=== PATIENT | female | born 1995 | race Caucasian/White ===

== ENCOUNTER 2017-05-22 22:51 | Emergency (ER) | payer OTHER ==
[~2017-05-22] VITALS: Ht 160 cm; Wt 109.3 kg
[~2017-05-22 22:51] MED LIST: ALBU90OI6 INH; AMOX500 PO; AMOX50SU PO; BCP; BIRTH CONTROL; EMOQUETTE1 EACH; FLORIDE; HYDACE5 PO; MEDR150I IM; METPHE10 PO; Mirena1 EACH; NAPR500 PO; ONDA4; ONDA4 PO; ORTHO NOVUM PO; OXYACE5T PO; RXTRAM50 PO; SERT25 PO; TRAM50; TRAM50 PO; TRAZ100 PO; TRAZ50; VENL75ER PO; [UNRECOGNIZED DRUG - OTHER]; [UNRECOGNIZED DRUG - OTHER]; [UNRECOGNIZED DRUG - OTHER]; [UNRECOGNIZED DRUG - REMARK]
[2017-05-22] MEDS ORDERED: ALBU90OI61 INH (23:13)
[2018-03-20] MEDS ORDERED: Amoxicillin500 MG PO (19:01)
== END 2017-05-23 01:43 | disposition home or self-care (01) ==
LOC: ER 22:51
DX: R51 Headache (principal); Z88.8 Allergy status to other drugs, medicaments and biological substances; Z91.011 Allergy to milk products; Z79.899 Other long term (current) drug therapy; J45.909 Unspecified asthma, uncomplicated
CPT/HCPCS: 99282

== ENCOUNTER 2017-08-13 22:22 | Emergency (ER) | payer OTHER ==
[~2017-08-13] VITALS: Ht 160 cm; Wt 105.2 kg
[~2017-08-13 22:22] MED LIST changes: +ALBU90OI61 INH
[2017-08-13] MEDS ORDERED: GABA300 PO (22:32)
== END 2017-08-14 00:24 | disposition home or self-care (01) ==
LOC: ER 22:22
DX: M79.641 Pain in right hand (principal); Z91.012 Allergy to eggs; Z88.8 Allergy status to other drugs, medicaments and biological substances; Z88.5 Allergy status to narcotic agent; Z79.899 Other long term (current) drug therapy; J45.909 Unspecified asthma, uncomplicated
CPT/HCPCS: 73130; 99283

== ENCOUNTER → 2017-08-15 | Outpatient (CLI) | payer OTHER ==
[~2017-08-15] MED LIST changes: +GABA300 PO
[2017-08-16 09:30] LABS: Candida species (DNA Probe) Negative (NEGATIVE); G. vaginalis (DNA Probe) Negative (NEGATIVE); T. vaginalis (DNA Probe) Negative (NEGATIVE)
== END | disposition home or self-care (01) ==
LOC: LAB SHORT 12:21 → LAB 12:21
PROVIDERS: Obstetrics & Gynecology
DX: N89.8 Other specified noninflammatory disorders of vagina (principal)
CPT/HCPCS: 87480; 87510; 87660

== ENCOUNTER → 2017-10-24 | Outpatient (CLI) | payer OTHER ==
[2017-11-01 10:29] LABS: CHLAMYDIA BY NAA Negative (Negative); GONOCOCCUS BY NAA Negative (Negative); TRICH VAG BY NAA Negative (Negative)
== END | disposition home or self-care (01) ==
LOC: LAB 16:15 → LAB SHORT 16:15
PROVIDERS: Obstetrics & Gynecology
DX: Z01.419 Encounter for gynecological examination (general) (routine) without abnormal findings (principal); Z11.3 Encounter for screening for infections with a predominantly sexual mode of transmission
CPT/HCPCS: 87491; 87591; 87661; G0123

== ENCOUNTER 2018-04-24 15:48 | Emergency (ER) | payer OTHER ==
[~2018-04-24] VITALS: Ht 162.6 cm; Wt 104.3 kg
[~2018-04-24 15:48] MED LIST changes: +Amoxicillin500 MG PO
[2018-04-24] MEDS ORDERED: Verotin-Gr Cap1 EACH PO (17:31)
[2018-04-24 17:36] LABS: BASOPHILS ABSOLUTE AUTO 0.04 K/mm3 (0.00-0.23); BASOPHILS PERCENT AUTO 0 % (0-2); EOSINOPHILS ABSOLUTE AUTO 0.12 K/mm3 (0.00-0.68); EOSINOPHILS PERCENT AUTO 1 % (0-6); Hematocrit 43.4 % (33.0-51.0); Hemoglobin 14.3 g/dL (11.5-16.0); IMMATURE GRAN ABSOLUTE AUTO 0.03 K/mm3 (0.00-0.10); IMMATURE GRAN PERCENT AUTO 0 % (0-1); LYMPHOCYTES ABSOLUTE AUTO 2.49 K/mm3 (0.84-5.20); LYMPHOCYTES PERCENT AUTO 21 % (21-46); MONOCYTES ABSOLUTE AUTO 0.86 K/mm3 (0.16-1.47); MONOCYTES PERCENT AUTO 7 % (4-13); Mean Corpuscular HGB 30.6 pg (26.0-34.0); Mean Corpuscular HGB Conc 32.9 g/dL (31.5-36.5); Mean Corpuscular Volume 93 fL (80-100); Mean Platelet Volume 10.6 fL (9.1-12.4); NEUTROPHILS ABSOLUTE AUTO 8.34 K/mm3 (1.96-9.15); NEUTROPHILS PERCENT AUTO 70 % (41-73); Platelet Count 309 K/mm3 (150-400); RDW Coefficient Variation 13.7 % (11.7-14.2); RDW Standard Deviation 46.4 fL (35.1-46.3); Red Blood Cell Count 4.68 M/mm3 (3.80-5.20); White Blood Cell Count 11.88 K/mm3 (4.00-11.30)
[2018-04-24 18:02] LABS: Alanine Aminotransfer (ALT/SGP 24 U/L (12-78); Albumin, Blood 3.9 g/dL (3.4-5.0); Albumin/Globulin Ratio 0.9 (0.8-1.8); Alk Phos 92 U/L (50-136); Anion Gap 7 mmol/L (6-16); Aspartate Aminotrans (AST/SGOT 12 U/L (12-37); Bilirubin, Total 0.3 mg/dL (0.1-1.0); Blood Urea Nitrogen 9 mg/dL (8-24); Bun/Creatinine Ratio 11.7 (12.0-20.0); CO2, Blood 24 mmol/L (21-32); Calcium, Blood 8.8 mg/dL (8.5-10.1); Chloride, Blood 107 mmol/L (98-108); Creatinine, Blood 0.77 mg/dL (0.40-1.00); Globulin, Blood 4.2 g/dL (2.2-4.0); Glomerular Filtration Rate >60 (60-); Glucose, Blood 86 mg/dL (70-99); Potassium, Blood 3.9 mmol/L (3.5-5.5); Sodium, Blood 138 mmol/L (136-145); Total Protein, Blood 8.1 g/dL (6.4-8.2)
[2018-04-24 18:32] LABS: Beta HCG, Quantitative, Serum 12183 mIU/mL (0-3)
== END 2018-04-24 19:19 | disposition home or self-care (01) ==
LOC: ER 15:48
PROVIDERS: Physician Assistant
DX: O20.8 Other hemorrhage in early pregnancy (principal); Z91.012 Allergy to eggs; Z88.5 Allergy status to narcotic agent; Z88.8 Allergy status to other drugs, medicaments and biological substances; Z79.899 Other long term (current) drug therapy; O99.511 Diseases of the respiratory system complicating pregnancy, first trimester; J45.909 Unspecified asthma, uncomplicated; Z3A.01 Less than 8 weeks gestation of pregnancy
CPT/HCPCS: 36415; 76801; 80053; 84702; 85025; 86900; 86901; 96360; 99284-25; J7030

== ENCOUNTER → 2018-07-24 | Outpatient (CLI) | payer OTHER ==
[~2018-07-24] MED LIST changes: +Verotin-Gr Cap1 EACH PO
[2018-07-27 03:58] LABS: CHLAMYDIA TRACHOMATIS, NAA Negative (Negative); NEISSERIA GONORRHOEAE, NAA Negative (Negative)
== END | disposition home or self-care (01) ==
LOC: LAB SHORT 18:56 → LAB 18:56
PROVIDERS: Obstetrics & Gynecology
DX: Z11.3 Encounter for screening for infections with a predominantly sexual mode of transmission (principal)
CPT/HCPCS: 87491; 87591

== ENCOUNTER → 2018-11-25 | Outpatient (CLI) | payer OTHER ==
[~2018-11-25] MED LIST changes: +IBUP800 PO; +VENL150ER PO
[2018-11-26 11:55] LABS: Candida species (DNA Probe) Negative (NEGATIVE); G. vaginalis (DNA Probe) Negative (NEGATIVE); T. vaginalis (DNA Probe) Negative (NEGATIVE)
== END | disposition home or self-care (01) ==
LOC: LAB SHORT 16:13 → LAB 16:13
PROVIDERS: Advanced Practice Midwife
DX: O23.599 Infection of other part of genital tract in pregnancy, unspecified trimester (principal)
CPT/HCPCS: 87081; 87480; 87510; 87653; 87660

== ENCOUNTER 2018-12-15 12:05 | Inpatient (IN) | payer OTHER ==
[~2018-12-15] VITALS: Ht 162.6 cm; Wt 116.0 kg
[~2018-12-15 12:05] MED LIST changes: -IBUP800 PO; -VENL150ER PO
[2018-12-15] MEDS ORDERED: VENL150ER PO (13:10)
[2018-12-15 13:49] LABS: BASOPHILS ABSOLUTE AUTO 0.03 K/mm3 (0.00-0.23); BASOPHILS PERCENT AUTO 0 % (0-2); EOSINOPHILS ABSOLUTE AUTO 0.01 K/mm3 (0.00-0.68); EOSINOPHILS PERCENT AUTO 0 % (0-6); Hematocrit 37.9 % (33.0-51.0); Hemoglobin 12.4 g/dL (11.5-16.0); IMMATURE GRAN ABSOLUTE AUTO 0.05 K/mm3 (0.00-0.10); IMMATURE GRAN PERCENT AUTO 0 % (0-1); LYMPHOCYTES ABSOLUTE AUTO 0.75 K/mm3 (0.84-5.20); LYMPHOCYTES PERCENT AUTO 5 % (21-46); MONOCYTES ABSOLUTE AUTO 0.37 K/mm3 (0.16-1.47); MONOCYTES PERCENT AUTO 2 % (4-13); Mean Corpuscular HGB 30.1 pg (26.0-34.0); Mean Corpuscular HGB Conc 32.7 g/dL (31.5-36.5); Mean Corpuscular Volume 92 fL (80-100); Mean Platelet Volume 11.8 fL (9.1-12.4); NEUTROPHILS PERCENT AUTO 93 % (41-73); Platelet Count 235 K/mm3 (150-400); RDW Coefficient Variation 13.9 % (11.7-14.2); RDW Standard Deviation 46.3 fL (35.1-46.3); Red Blood Cell Count 4.12 M/mm3 (3.80-5.20); White Blood Cell Count 16.21 K/mm3 (4.00-11.30)
[2018-12-16 04:42] LABS: Hematocrit 36.9 % (33.0-51.0); Hemoglobin 12.2 g/dL (11.5-16.0); Mean Corpuscular HGB 30.7 pg (26.0-34.0); Mean Corpuscular HGB Conc 33.1 g/dL (31.5-36.5); Mean Corpuscular Volume 93 fL (80-100); Mean Platelet Volume 11.7 fL (9.1-12.4); Platelet Count 236 K/mm3 (150-400); RDW Coefficient Variation 14.1 % (11.7-14.2); RDW Standard Deviation 47.4 fL (35.1-46.3); Red Blood Cell Count 3.98 M/mm3 (3.80-5.20); White Blood Cell Count 21.21 K/mm3 (4.00-11.30)
--- NOTE | 2018-12-16 16:45 | NUR ---
CONSULT. BABY IS NEARING 24 HOURS AND STARTING TO WAKEN FOR FEEDINGS. INSTRUCT IN CHANGES TO EXPECT DURING THE FIRST WEEK WITH FEEDINGS AND WITH BABY AND REFERRED TO [facility] FOR PHOTOS AND INFORMATION. MOM IS MOTIVATED, WANTS TO BF, LOVING WITH BABY. QUESTIONS ANSWERED. INSTRUCT/DEMO POSITIONING TO HELP OBTAIN AN ASYMETRIC LATCH, FURTHER WIDEN THE LATCH, AND STIMULATING HIM TO KEEP ACTIVELY SUCKING. TOO SLEEPY TO LATCH WELL DURING VISIT. FAMILY MEMBERS PRESENT AND WILLING TO HELP AND MOM IS ACCEPTING OF HELP.
--- NOTE | 2018-12-17 09:20 | NUR ---
core referral made hholcomb rnc agree with assessment hholcomb rnc
[2018-12-17] MEDS ORDERED: IBUP800 PO (10:10)
--- NOTE | 2018-12-17 12:11 | NUR ---
DISCHARE INSTRUCTIONS REVIEWED WITH PATIENT. VERBALIZED UNDERSTANDING, DENIES ANY FURTHER QUESTIONS OR CONCERNS. BANDS MATCHED. MOM DISCHARGED HOME WITH BABY.
== END 2018-12-17 12:00 | disposition home or self-care (01) | DRG 807 ==
LOC: BC 12:05 → OBS 12:05 → BC 13:02
PROVIDERS: ADMIT Advanced Practice Midwife
PROC: 10E0XZZ Delivery of Products of Conception, External Approach (ICD-10-PCS; principal; 2018-12-15)
PROC: 0KQM0ZZ Repair Perineum Muscle, Open Approach (ICD-10-PCS; 2018-12-15)
PROC: 10907ZC Drainage of Amniotic Fluid, Therapeutic from Products of Conception, Via Natural or Artificial Opening (ICD-10-PCS; 2018-12-15)
DX: O32.6XX0 Maternal care for compound presentation, not applicable or unspecified (principal); Z37.0 Single live birth; O70.1 Second degree perineal laceration during delivery; Z3A.38 38 weeks gestation of pregnancy; O76 Abnormality in fetal heart rate and rhythm complicating labor and delivery; O99.344 Other mental disorders complicating childbirth; O99.62 Diseases of the digestive system complicating childbirth; O99.52 Diseases of the respiratory system complicating childbirth; O99.214 Obesity complicating childbirth; E66.9 Obesity, unspecified; K21.9 Gastro-esophageal reflux disease without esophagitis; F41.9 Anxiety disorder, unspecified; F32.9 Major depressive disorder, single episode, unspecified; F43.10 Post-traumatic stress disorder, unspecified; J45.909 Unspecified asthma, uncomplicated
CPT/HCPCS: 36415; 59025; 85025; 85027; A9270; J1885; J2405; J2590; J3010; J7120

== ENCOUNTER 2019-05-01 19:36 | Emergency (ER) | payer OTHER ==
[~2019-05-01] VITALS: Ht 160 cm; Wt 108.9 kg
[~2019-05-01 19:36] MED LIST changes: +IBUP800 PO; +VENL150ER PO
[2019-05-01 20:37] LABS: BASOPHILS ABSOLUTE AUTO 0.05 K/mm3 (0.00-0.23); BASOPHILS PERCENT AUTO 1 % (0-2); EOSINOPHILS ABSOLUTE AUTO 0.17 K/mm3 (0.00-0.68); EOSINOPHILS PERCENT AUTO 2 % (0-6); Hematocrit 44.3 % (33.0-51.0); Hemoglobin 14.5 g/dL (11.5-16.0); IMMATURE GRAN ABSOLUTE AUTO 0.03 K/mm3 (0.00-0.10); IMMATURE GRAN PERCENT AUTO 0 % (0-1); LYMPHOCYTES ABSOLUTE AUTO 3.15 K/mm3 (0.84-5.20); LYMPHOCYTES PERCENT AUTO 29 % (21-46); MONOCYTES ABSOLUTE AUTO 0.75 K/mm3 (0.16-1.47); MONOCYTES PERCENT AUTO 7 % (4-13); Mean Corpuscular HGB 29.4 pg (26.0-34.0); Mean Corpuscular HGB Conc 32.7 g/dL (31.5-36.5); Mean Corpuscular Volume 90 fL (80-100); Mean Platelet Volume 10.4 fL (9.1-12.4); NEUTROPHILS ABSOLUTE AUTO 6.67 K/mm3 (1.96-9.15); NEUTROPHILS PERCENT AUTO 62 % (41-73); Platelet Count 398 K/mm3 (150-400); RDW Coefficient Variation 14.6 % (11.7-14.2); RDW Standard Deviation 47.7 fL (35.1-46.3); Red Blood Cell Count 4.94 M/mm3 (3.80-5.20); White Blood Cell Count 10.82 K/mm3 (4.00-11.30)
[2019-05-01 20:55] LABS: Alanine Aminotransfer (ALT/SGP 48 U/L (12-78); Albumin, Blood 3.9 g/dL (3.4-5.0); Albumin/Globulin Ratio 0.9 (0.8-1.8); Alk Phos 131 U/L (50-136); Anion Gap 6 mmol/L (6-16); Aspartate Aminotrans (AST/SGOT 24 U/L (12-37); Bilirubin, Total 0.3 mg/dL (0.1-1.0); Blood Urea Nitrogen 9 mg/dL (8-24); Bun/Creatinine Ratio 12.4 (12.0-20.0); CO2, Blood 24 mmol/L (21-32); Calcium, Blood 8.8 mg/dL (8.5-10.1); Chloride, Blood 109 mmol/L (98-108); Creatinine, Blood 0.73 mg/dL (0.40-1.00); Globulin, Blood 4.4 g/dL (2.2-4.0); Glomerular Filtration Rate >60 (60-); Glucose, Blood 96 mg/dL (70-99); Potassium, Blood 3.9 mmol/L (3.5-5.5); Sodium, Blood 139 mmol/L (136-145); Total Protein, Blood 8.3 g/dL (6.4-8.2)
[2019-05-01] MEDS ORDERED: ARIP10 PO (21:54)
[2019-05-01] MEDS ORDERED: OMEPRAZOLE20 MG PO (21:54)
[2019-05-01] MEDS ORDERED: DULO60 PO (21:54)
[2019-05-01 22:15] LABS: Source, Urine Clean Catch
[2019-05-01 22:18] LABS: Bilirubin, Urine Neg (Neg); Blood, Urine 5+ (Neg); Glucose Qualitative, Urine Neg (Neg); Ketones, Urine Neg (Neg); Leukocyte Esterase, Urine Neg (Neg); Nitrite, Urine Neg (Neg); Protein, Urine 1+ (Neg); Specific Gravity, Urine 1.025 (1.003-1.022); Urobilinogen, Urine NORM (Normal)
[2019-05-01 22:45] LABS: Amorphous Heavy (0-Heavy); Appearance, Urine Turbid (Clear); Bacteria Few /hpf; Color, Urine Yellow (P-Yellow); Red Blood Cells, Urine 0-2 /hpf (0-2); Squamous Epithelial Cells Few /hpf (Few); White Blood Cells, Urine Not Seen /hpf (0-5)
[2019-05-01] MEDS ORDERED: MEDR10 PO (23:02)
== END 2019-05-01 23:08 | disposition home or self-care (01) ==
LOC: ER 19:36
PROVIDERS: Emergency Medicine; Physician Assistant
DX: T83.9XXA Unspecified complication of genitourinary prosthetic device, implant and graft, initial encounter (principal); N93.8 Other specified abnormal uterine and vaginal bleeding; J45.909 Unspecified asthma, uncomplicated; F32.9 Major depressive disorder, single episode, unspecified; F41.9 Anxiety disorder, unspecified; Z91.012 Allergy to eggs; Z88.5 Allergy status to narcotic agent; Z88.8 Allergy status to other drugs, medicaments and biological substances
CPT/HCPCS: 36415; 80053; 81001; 84703; 85025; 96374; 99284-25; J1885

== ENCOUNTER → 2020-03-05 | Outpatient (CLI) | payer OTHER ==
[~2020-03-05] MED LIST changes: +ARIP10 PO; +DULO60 PO; +MEDR10 PO; +OMEPRAZOLE20 MG PO
== END | disposition home or self-care (01) ==
LOC: PLD 10:57 → LAB SHORT 10:57
DX: R05 Cough (principal); Z20.828 Contact with and (suspected) exposure to other viral communicable diseases
CPT/HCPCS: U0003

== ENCOUNTER → 2021-06-15 | Outpatient (CLI) | payer OTHER ==
[2021-06-22 10:08] LABS: HPV APTIMA Negative (Negative)
== END | disposition home or self-care (01) ==
LOC: LAB 16:18 → LAB SHORT 16:18
PROVIDERS: Obstetrics & Gynecology
DX: Z01.411 Encounter for gynecological examination (general) (routine) with abnormal findings (principal)
CPT/HCPCS: G0123

== ENCOUNTER 2022-02-12 05:58 | Day surgery (SDC) | payer OTHER ==
[~2022-02-12] VITALS: Ht 162.6 cm; Wt 137.4 kg
[~2022-02-12 05:58] MED LIST changes: +GABA400 PO
--- NOTE | 2022-02-12 07:04 | NUR ---
History, Chart, Medications and Allergies reviewed before start of procedure. Lungs clear T/O to Auscultation. Patient confirms NPO status and agrees with scheduled surgery. Pre-Op teaching done. Pt verbalizes understanding. Patient States Post-Procedure ride home has been arranged. Patient reports completing Chlorhexadine shower X2 prior to admission to hospital.
--- NOTE | 2022-02-12 08:27 | NUR ---
02/12/22 0827 Marycarmen Machado NO PREOP ANTIBIOTICS ORDERED PER .
--- NOTE | 2022-02-12 11:40 | NUR ---
Discharge instructions reviewed with patient. Patient verbalizes understanding. Copy given to patient to take home. PATIENT REPORTS ABLE TO URINATE AFTER UP TO BATHROOM. Patient up to Ambulate independently. Gait steady. Discharged via wheelchair to private car for ride home WITH MOM
== END 2022-02-12 22:45 | disposition home or self-care (01) ==
LOC: ORSCMMR 05:58 → ORD 07:30 → ORSCMMR 22:45
PROVIDERS: Obstetrics & Gynecology
PROC: 0UJD4ZZ Inspection of Uterus and Cervix, Percutaneous Endoscopic Approach (ICD-10-PCS; principal; 2022-02-12 07:30)
DX: N80.9 Endometriosis, unspecified (principal); F32.A Depression, unspecified; F43.10 Post-traumatic stress disorder, unspecified; F90.9 Attention-deficit hyperactivity disorder, unspecified type; J45.909 Unspecified asthma, uncomplicated; E66.9 Obesity, unspecified; Z68.43 Body mass index [BMI] 50.0-59.9, adult; Z79.899 Other long term (current) drug therapy
CPT/HCPCS: 86850; 86900; 86901; A9270; J1100; J1885; J2250; J2405; J2704; J2765; J2795; J3010; J7120

== ENCOUNTER 2022-10-26 18:47 | Emergency (ER) | payer OTHER ==
[~2022-10-26] VITALS: Ht 165.1 cm; Wt 132.0 kg
[2022-10-26 19:17] VITALS: BP 130/79
[2022-10-26 19:49] LABS: BASOPHILS ABSOLUTE AUTO 0.03 K/mm3 (0.00-0.23); BASOPHILS PERCENT AUTO 0 % (0-2); EOSINOPHILS ABSOLUTE AUTO 0.11 K/mm3 (0.00-0.68); EOSINOPHILS PERCENT AUTO 1 % (0-6); Hematocrit 41.9 % (33.0-51.0); Hemoglobin 14.5 g/dL (11.5-16.0); IMMATURE GRAN ABSOLUTE AUTO 0.03 K/mm3 (0.00-0.10); IMMATURE GRAN PERCENT AUTO 0 % (0-1); LYMPHOCYTES ABSOLUTE AUTO 3.16 K/mm3 (0.84-5.20); LYMPHOCYTES PERCENT AUTO 28 % (21-46); MONOCYTES ABSOLUTE AUTO 0.71 K/mm3 (0.16-1.47); MONOCYTES PERCENT AUTO 6 % (4-13); Mean Corpuscular HGB 31.9 pg (26.0-34.0); Mean Corpuscular HGB Conc 34.6 g/dL (31.5-36.5); Mean Corpuscular Volume 92 fL (80-100); NEUTROPHILS ABSOLUTE AUTO 7.15 K/mm3 (1.96-9.15); NEUTROPHILS PERCENT AUTO 64 % (41-73); Platelet Count 272 K/mm3 (150-400); RDW Coefficient Variation 13.4 % (11.7-14.2); RDW Standard Deviation 45.5 fL (35.1-46.3); Red Blood Cell Count 4.55 M/mm3 (3.80-5.20); White Blood Cell Count 11.19 K/mm3 (4.00-11.30)
[2022-10-26 19:59] LABS: Albumin/Globulin Ratio 1.1 (0.8-1.8); Bilirubin, Total 0.3 mg/dL (0.1-1.0); Bun/Creatinine Ratio 17.4 (12.0-20.0); Calcium, Blood 9.1 mg/dL (8.5-10.1); Creatinine, Blood 0.63 mg/dL (0.40-1.00); Globulin, Blood 3.5 g/dL (2.2-4.0); Potassium, Blood 4.2 mmol/L (3.5-5.5); Total Protein, Blood 7.5 g/dL (6.4-8.2)
== END 2022-10-26 22:49 | disposition home or self-care (01) ==
LOC: ER 18:47
PROVIDERS: Emergency Medicine
DX: O20.0 Threatened abortion (principal); O99.511 Diseases of the respiratory system complicating pregnancy, first trimester; J45.909 Unspecified asthma, uncomplicated; Z3A.01 Less than 8 weeks gestation of pregnancy; Z88.8 Allergy status to other drugs, medicaments and biological substances; Z91.012 Allergy to eggs
CPT/HCPCS: 76801; 76817; 80053; 84703; 85025; 86900; 86901; 99284-25

== ENCOUNTER 2022-12-08 20:02 | Emergency (ER) | payer OTHER ==
[~2022-12-08] VITALS: Ht 162.6 cm; Wt 122.5 kg
[2022-12-08 21:12] LABS: Albumin, Blood 3.4 g/dL (3.4-5.0); Albumin/Globulin Ratio 0.8 (0.8-1.8); Bilirubin, Total 0.2 mg/dL (0.1-1.0); Bun/Creatinine Ratio 9.3 (12.0-20.0); Calcium, Blood 9.3 mg/dL (8.5-10.1); Creatinine, Blood 0.54 mg/dL (0.40-1.00); Globulin, Blood 4.1 g/dL (2.2-4.0); Potassium, Blood 3.8 mmol/L (3.5-5.5); Total Protein, Blood 7.5 g/dL (6.4-8.2)
[2022-12-08 22:46] LABS: BASOPHILS ABSOLUTE AUTO 0.02 K/mm3 (0.00-0.23); BASOPHILS PERCENT AUTO 0 % (0-2); EOSINOPHILS ABSOLUTE AUTO 0.06 K/mm3 (0.00-0.68); EOSINOPHILS PERCENT AUTO 1 % (0-6); Hematocrit 40.6 % (33.0-51.0); Hemoglobin 14.1 g/dL (11.5-16.0); IMMATURE GRAN ABSOLUTE AUTO 0.02 K/mm3 (0.00-0.10); IMMATURE GRAN PERCENT AUTO 0 % (0-1); LYMPHOCYTES ABSOLUTE AUTO 2.25 K/mm3 (0.84-5.20); LYMPHOCYTES PERCENT AUTO 21 % (21-46); MONOCYTES ABSOLUTE AUTO 0.77 K/mm3 (0.16-1.47); MONOCYTES PERCENT AUTO 7 % (4-13); Mean Corpuscular HGB 31.7 pg (26.0-34.0); Mean Corpuscular HGB Conc 34.7 g/dL (31.5-36.5); Mean Corpuscular Volume 91 fL (80-100); Mean Platelet Volume 11.2 fL (9.1-12.4); NEUTROPHILS ABSOLUTE AUTO 7.88 K/mm3 (1.96-9.15); NEUTROPHILS PERCENT AUTO 72 % (41-73); Platelet Count 239 K/mm3 (150-400); RDW Coefficient Variation 13.2 % (11.7-14.2); RDW Standard Deviation 44.2 fL (35.1-46.3); Red Blood Cell Count 4.45 M/mm3 (3.80-5.20)
[2022-12-08 23:00] VITALS: BP 127/73
== END 2022-12-08 23:08 | disposition home or self-care (01) ==
LOC: ER 20:02
PROVIDERS: Emergency Medicine
DX: O26.851 Spotting complicating pregnancy, first trimester (principal); O99.511 Diseases of the respiratory system complicating pregnancy, first trimester; J45.909 Unspecified asthma, uncomplicated; Z3A.13 13 weeks gestation of pregnancy; Z88.5 Allergy status to narcotic agent; Z88.8 Allergy status to other drugs, medicaments and biological substances; Z91.012 Allergy to eggs; Z79.899 Other long term (current) drug therapy
CPT/HCPCS: 76801; 80053; 84702; 85025; 86900; 86901; 99284-25

== ENCOUNTER 2022-12-28 22:48 | Emergency (ER) | payer OTHER ==
[~2022-12-28] VITALS: Ht 162.6 cm; Wt 124.2 kg
[2022-12-28 23:15] LABS: Source, Urine Clean Catch
[2022-12-28 23:19] LABS: Bilirubin, Urine Neg (Neg); Blood, Urine 2+ (Neg); Glucose Qualitative, Urine Neg (Neg); Ketones, Urine 3+ (Neg); Leukocyte Esterase, Urine 1+ (Neg); Nitrite, Urine Neg (Neg); Protein, Urine 1+ (Neg); Urobilinogen, Urine NORM (Normal)
[2022-12-28 23:25] LABS: Appearance, Urine Hazy (Clear); Color, Urine Yellow (P-Yellow)
[2022-12-28 23:27] LABS: Amorphous Light (0-Heavy); Bacteria Many /hpf; Calcium Oxalate Crystals Mod /hpf; Mucus Light (0-Heavy); Red Blood Cells, Urine 0-2 /hpf (0-2); Squamous Epithelial Cells Few /hpf (Few)
[2022-12-28 23:31] LABS: BASOPHILS ABSOLUTE AUTO 0.02 K/mm3 (0.00-0.23); BASOPHILS PERCENT AUTO 0 % (0-2); EOSINOPHILS ABSOLUTE AUTO 0.09 K/mm3 (0.00-0.68); EOSINOPHILS PERCENT AUTO 1 % (0-6); Hematocrit 38.9 % (33.0-51.0); Hemoglobin 13.5 g/dL (11.5-16.0); IMMATURE GRAN ABSOLUTE AUTO 0.02 K/mm3 (0.00-0.10); IMMATURE GRAN PERCENT AUTO 0 % (0-1); LYMPHOCYTES ABSOLUTE AUTO 3.61 K/mm3 (0.84-5.20); LYMPHOCYTES PERCENT AUTO 32 % (21-46); MONOCYTES ABSOLUTE AUTO 0.69 K/mm3 (0.16-1.47); MONOCYTES PERCENT AUTO 6 % (4-13); Mean Corpuscular HGB 31.9 pg (26.0-34.0); Mean Corpuscular HGB Conc 34.7 g/dL (31.5-36.5); Mean Corpuscular Volume 92 fL (80-100); Mean Platelet Volume 11.4 fL (9.1-12.4); NEUTROPHILS ABSOLUTE AUTO 6.76 K/mm3 (1.96-9.15); NEUTROPHILS PERCENT AUTO 60 % (41-73); Platelet Count 243 K/mm3 (150-400); RDW Coefficient Variation 13.4 % (11.7-14.2); RDW Standard Deviation 44.7 fL (35.1-46.3); Red Blood Cell Count 4.23 M/mm3 (3.80-5.20); White Blood Cell Count 11.19 K/mm3 (4.00-11.30)
[2022-12-28] MEDS ORDERED: PRENATAL TABLE1 EAC2 PO (23:58)
[2022-12-28] MEDS ORDERED: METO5A PO (23:58)
[2022-12-29 00:22] LABS: Albumin, Blood 3.2 g/dL (3.4-5.0); Albumin/Globulin Ratio 0.8 (0.8-1.8); Bilirubin, Total 0.3 mg/dL (0.1-1.0); Bun/Creatinine Ratio 12.5 (12.0-20.0); Calcium, Blood 9.2 mg/dL (8.5-10.1); Creatinine, Blood 0.56 mg/dL (0.40-1.00); Globulin, Blood 3.8 g/dL (2.2-4.0); Potassium, Blood 3.8 mmol/L (3.5-5.5)
[2022-12-29 00:50] VITALS: BP 104/82
== END 2022-12-29 00:51 | disposition home or self-care (01) ==
LOC: ER 22:48
PROVIDERS: Emergency Medicine
DX: O20.9 Hemorrhage in early pregnancy, unspecified (principal); O99.512 Diseases of the respiratory system complicating pregnancy, second trimester; J45.909 Unspecified asthma, uncomplicated; Z88.8 Allergy status to other drugs, medicaments and biological substances; Z88.5 Allergy status to narcotic agent; Z91.012 Allergy to eggs; Z79.899 Other long term (current) drug therapy; Z3A.16 16 weeks gestation of pregnancy
CPT/HCPCS: 76815; 76817; 80053; 81001; 84702; 85025; 86900; 86901; 87086; 99284-25

== ENCOUNTER → 2023-04-11 | Outpatient (CLI) | payer OTHER ==
[~2023-04-11] MED LIST changes: +METO5A PO; +PRENATAL TABLE1 EAC2 PO
[2023-04-12 11:17] LABS: Candida species (DNA Probe) Positive (NEGATIVE); G. vaginalis (DNA Probe) Negative (NEGATIVE); T. vaginalis (DNA Probe) Negative (NEGATIVE)
== END ==
LOC: LAB SHORT 13:49 → LAB 13:49
PROVIDERS: Obstetrics & Gynecology
DX: N76.0 Acute vaginitis (principal)
CPT/HCPCS: 87480; 87510; 87660

== ENCOUNTER → 2023-05-13 | Outpatient (CLI) | payer OTHER ==
[2023-05-13 15:08] LABS: Source, Urine Clean Catch
[2023-05-13 18:32] LABS: Appearance, Urine Turbid (Clear); Bilirubin, Urine Neg (Neg); Blood, Urine 4+ (Neg); Color, Urine Yellow (P-Yellow); Glucose Qualitative, Urine Neg (Neg); Ketones, Urine 1+ (Neg); Leukocyte Esterase, Urine 3+ (Neg); Nitrite, Urine Neg (Neg); Protein, Urine 2+ (Neg); Specific Gravity, Urine 1.025 (1.003-1.022); Urobilinogen, Urine NORM (Normal)
[2023-05-13 18:45] LABS: Amorphous Heavy (0-Heavy); Bacteria Mod /hpf; Calcium Oxalate Crystals Few /hpf; Squamous Epithelial Cells Few /hpf (Few)
== END | disposition home or self-care (01) ==
LOC: LAB SHORT 15:06 → LAB 15:06
PROVIDERS: Obstetrics & Gynecology
DX: R31.9 Hematuria, unspecified (principal)
CPT/HCPCS: 81001; 87086

== ENCOUNTER → 2023-05-20 | Outpatient (CLI) | payer OTHER ==
[2023-05-20 15:35] LABS: Source, Urine Clean Catch
[2023-05-20 16:43] LABS: Appearance, Urine Cloudy (Clear); Bilirubin, Urine Neg (Neg); Blood, Urine 3+ (Neg); Color, Urine Yellow (P-Yellow); Glucose Qualitative, Urine Neg (Neg); Ketones, Urine Neg (Neg); Leukocyte Esterase, Urine 3+ (Neg); Nitrite, Urine Neg (Neg); Protein, Urine 2+ (Neg); Urobilinogen, Urine NORM (Normal)
[2023-05-20 16:54] LABS: Calcium Oxalate Crystals Mod /hpf
[2023-05-20 16:55] LABS: Bacteria Many /hpf; Red Blood Cells, Urine 0-2 /hpf (0-2); Squamous Epithelial Cells Mod /hpf (Few)
== END ==
LOC: LAB SHORT 15:31 → LAB 15:31
PROVIDERS: Obstetrics & Gynecology
DX: O99.211 Obesity complicating pregnancy, first trimester (principal); O09.891 Supervision of other high risk pregnancies, first trimester; Z3A.00 Weeks of gestation of pregnancy not specified
CPT/HCPCS: 81001; 87081; 87086; 87150

== ENCOUNTER 2023-06-02 14:36 | Inpatient (IN) | payer OTHER ==
[~2023-06-02] VITALS: Ht 162.6 cm; Wt 122.4 kg
[2023-06-02] VITALS (11 sets, daily range): BP systolic 92–119; BP diastolic 50–68
[2023-06-02] MEDS ORDERED: Oxytocin 10 Unit / ML Vial IM SCH (14:50)
[2023-06-02] MEDS ORDERED: Misoprostol 200 MCG Tab PR SCH (14:50)
[2023-06-02] MEDS ORDERED: Lidocaine HCl 1% 30 ML SDV XX SCH (14:50)
[2023-06-02] MEDS ORDERED: Castor Oil 59.146 ML BTL TOP SCH (14:50)
[2023-06-02] MEDS ORDERED: Ampicillin Sod 2,000 MG in NS 100 ML IV STA (14:50)
[2023-06-02] MEDS ORDERED: Bupivacaine HCl 2.5 MG/ML 10ML P/F Injection XX SCH (14:50)
[2023-06-02] MEDS ORDERED: Lactated Ringer's 1,000 ML IV PRN (14:50)
[2023-06-02] MEDS ORDERED: Methylergonovine Maleate 0.2MG / ML 1ML Amp IM SCH (14:50)
[2023-06-02] MEDS ORDERED: LR Oxytocin 20 Units 1,000 ML IV SCH ×2 (14:50→20:20)
[2023-06-02] MEDS ORDERED: Bupivacaine 0.5% HCl 5 MG/ML 30MLVIAL XX SCH (14:50)
[2023-06-02 15:21] LABS: BASOPHILS ABSOLUTE AUTO 0.04 K/mm3 (0.00-0.23); BASOPHILS PERCENT AUTO 0 % (0-2); EOSINOPHILS PERCENT AUTO 1 % (0-6); Hematocrit 38.1 % (33.0-51.0); Hemoglobin 12.8 g/dL (11.5-16.0); IMMATURE GRAN ABSOLUTE AUTO 0.05 K/mm3 (0.00-0.10); IMMATURE GRAN PERCENT AUTO 0 % (0-1); LYMPHOCYTES ABSOLUTE AUTO 2.32 K/mm3 (0.84-5.20); LYMPHOCYTES PERCENT AUTO 20 % (21-46); MONOCYTES ABSOLUTE AUTO 0.85 K/mm3 (0.16-1.47); MONOCYTES PERCENT AUTO 7 % (4-13); Mean Corpuscular HGB 31.1 pg (26.0-34.0); Mean Corpuscular HGB Conc 33.6 g/dL (31.5-36.5); Mean Corpuscular Volume 93 fL (80-100); Mean Platelet Volume 11.6 fL (9.1-12.4); NEUTROPHILS ABSOLUTE AUTO 8.18 K/mm3 (1.96-9.15); NEUTROPHILS PERCENT AUTO 71 % (41-73); Platelet Count 262 K/mm3 (150-400); RDW Coefficient Variation 13.8 % (11.7-14.2); RDW Standard Deviation 46.6 fL (35.1-46.3); Red Blood Cell Count 4.12 M/mm3 (3.80-5.20); White Blood Cell Count 11.54 K/mm3 (4.00-11.30)
[2023-06-02] MEDS ORDERED: FentaNYL Citrate 50 MCG/ML 2 ML Injection IV PRN ×2 (15:40→15:45)
[2023-06-02] MEDS ORDERED: Calcium Carbonate 500 MG Tab Chew PO PRN (15:45)
[2023-06-02] MEDS ORDERED: FentaNYL Citrate 50 MCG/ML 2 ML Injection ONE (15:46)
[2023-06-02] MEDS ORDERED: Ondansetron HCl 2 MG / ML 2ML Vial IV PRN (15:50)
[2023-06-02] MEDS ORDERED: Ampicillin Sod 1,000 MG in NS 50 ML IV SCH (19:30)
[2023-06-02] MEDS ORDERED: Lactated Ringer's 1,000 ML IV SCH (20:20)
[2023-06-02] MEDS ORDERED: Methylergonovine Maleate 0.2MG / ML 1ML Amp IM PRN (20:20)
[2023-06-02] MEDS ORDERED: Acetaminophen 325 MG TABLET PO PRN (20:20)
[2023-06-02] MEDS ORDERED: Docusate Sodium 100 MG Cap PO PRN (20:25)
[2023-06-02] MEDS ORDERED: Witch Hazel/Glycerin PADS TOP PRN (20:25)
[2023-06-02] MEDS ORDERED: Benzocaine Topical Anesthetic Spray 60GM TOP PRN (20:25)
[2023-06-02] MEDS ORDERED: FLU VACC QS2023-24(6MOS UP)/PF 60 MCG/0.5 ML SYRINGE IM ONE (20:25)
[2023-06-02] MEDS ORDERED: Misoprostol 200 MCG Tab PR PRN (20:25)
[2023-06-02] MEDS ORDERED: Ibuprofen 400 MG Tab PO PRN (20:25)
[2023-06-02] MEDS ORDERED: Ketorolac Tromethamine 30mg Vial IV ONE (21:00)
[2023-06-02] MEDS ORDERED: Ketorolac Tromethamine 30mg Vial IV PRN (21:00)
[2023-06-03] MEDS ORDERED: Acetaminophen 325 MG TABLET PO PRN (01:20)
[2023-06-03 01:22] VITALS: BP 112/58
[2023-06-03 04:20] VITALS: BP 100/63
[2023-06-03 05:51] LABS: Free Thyroxine 0.84 ng/dL (0.70-1.60); Thyroid Stimulating Hormone 0.583 uIU/mL (0.360-4.800); Triiodothyronine, Free 2.15 pg/mL (2.18-3.98)
[2023-06-03 08:09] VITALS: BP 109/57
[2023-06-03] MEDS ORDERED: Prenatal Vit/FE Fumarate/FA 1 Tab PO SCH (09:00)
[2023-06-03 11:52] VITALS: BP 106/57
[2023-06-03 16:33] VITALS: BP 103/52
[2023-06-03 19:39] VITALS: BP 103/55
== END 2023-06-03 20:25 | disposition home or self-care (01) | DRG 807 ==
LOC: OBS 14:36 → BC 14:37 → OBS 14:44 → BC 14:44
PROVIDERS: Advanced Practice Midwife; ADMIT Obstetrics & Gynecology
PROC: 10E0XZZ Delivery of Products of Conception, External Approach (ICD-10-PCS; principal; 2023-06-02)
PROC: 4A1HXCZ Monitoring of Products of Conception, Cardiac Rate, External Approach (ICD-10-PCS; 2023-06-02)
PROC: 10H073Z Insertion of Monitoring Electrode into Products of Conception, Via Natural or Artificial Opening (ICD-10-PCS; 2023-06-02)
PROC: 4A1H7CZ Monitoring of Products of Conception, Cardiac Rate, Via Natural or Artificial Opening (ICD-10-PCS; 2023-06-02)
PROC: 10H07YZ Insertion of Other Device into Products of Conception, Via Natural or Artificial Opening (ICD-10-PCS; 2023-06-02)
DX: O42.02 Full-term premature rupture of membranes, onset of labor within 24 hours of rupture (principal); Z37.0 Single live birth; O99.284 Endocrine, nutritional and metabolic diseases complicating childbirth; E05.90 Thyrotoxicosis, unspecified without thyrotoxic crisis or storm; O99.214 Obesity complicating childbirth; E66.01 Morbid (severe) obesity due to excess calories; O69.81X0 Labor and delivery complicated by cord around neck, without compression, not applicable or unspecified; O99.824 Streptococcus B carrier state complicating childbirth; O67.9 Intrapartum hemorrhage, unspecified; O70.0 First degree perineal laceration during delivery; Z88.5 Allergy status to narcotic agent; Z88.8 Allergy status to other drugs, medicaments and biological substances; Z79.82 Long term (current) use of aspirin
CPT/HCPCS: 36415; 84439; 84443; 84481; 85025; 86850; 86900; 86901; A9270; J0290; J1885; J2405; J2590; J3010; J7120

== ENCOUNTER 2023-06-06 01:55 | Emergency (ER) | payer OTHER ==
[~2023-06-06] VITALS: Ht 162.6 cm; Wt 119.8 kg
[2023-06-06 02:06] VITALS: BP 128/82
[2023-06-06] MEDS ORDERED: DOCU100 PO (03:34)
== END 2023-06-06 03:43 | disposition home or self-care (01) ==
LOC: ER 01:55
DX: O99.893 Other specified diseases and conditions complicating puerperium (principal); N81.10 Cystocele, unspecified; Z91.012 Allergy to eggs; Z88.5 Allergy status to narcotic agent; Z88.1 Allergy status to other antibiotic agents
CPT/HCPCS: 99283

== ENCOUNTER → 2023-10-10 | Outpatient (CLI) | payer OTHER ==
[~2023-10-10] MED LIST changes: +DOCU100 PO
[2023-10-10 17:26] LABS: Source, Urine Voided
[2023-10-10 20:16] LABS: U Amphetamine Screen Not Detected; U Barbituate Screen Not Detected; U Benzodiazapine Screen Not Detected; U Buprenorphine Screen Not Detected; U Cannabinoids Screen Not Detected; U Cocaine Screen Not Detected; U Methadone Screen Not Detected; U Methamphetamine Screen Not Detected; U Opiates Screen Not Detected; U Oxycodone Screen Not Detected; U Phencyclidine Screen Not Detected
[2023-10-10 20:36] LABS: Amorphous Heavy (0-Heavy); Bacteria Few /hpf; Red Blood Cells, Urine 0-2 /hpf (0-2); Squamous Epithelial Cells Few /hpf (Few); White Blood Cells, Urine 0-2 /hpf (0-5)
== END | disposition home or self-care (01) ==
LOC: LAB 17:21 → LAB SHORT 17:21
PROVIDERS: Obstetrics & Gynecology
DX: Z34.81 Encounter for supervision of other normal pregnancy, first trimester (principal)
CPT/HCPCS: 81015; 87086

== ENCOUNTER 2023-11-11 10:56 | Day surgery (SDC) | payer OTHER ==
[~2023-11-11] VITALS: Ht 162.6 cm; Wt 120.7 kg
[~2023-11-11 10:56] MED LIST changes: +Lactated Ringer's 1,000 ML IV ONE
[2023-11-11] MEDS ORDERED: Methylergonovine Maleate 0.2MG / ML 1ML Amp ONE (11:34)
[2023-11-11] MEDS ORDERED: FentaNYL Citrate 50 MCG/ML 2 ML Injection ONE (11:39)
[2023-11-11] MEDS ORDERED: propofoL 40 ML IV ONE (11:39)
[2023-11-11] MEDS ORDERED: Lactated Ringer's 1,000 ML IV ONE (11:46)
[2023-11-11] MEDS ORDERED: Metoclopramide HCl 5MG / ML 2ML Vial ONE (11:59)
[2023-11-11] MEDS ORDERED: Dexamethasone Sod Phos 10 MG/ML 1ML VIAL ONE (11:59)
[2023-11-11] MEDS ORDERED: Ondansetron HCl 2 MG / ML 2ML Vial ONE ×2 (11:59→12:49)
[2023-11-11] MEDS ORDERED: Ketorolac Tromethamine 30mg Vial ONE (12:21)
[2023-11-11] MEDS ORDERED: Acetaminophen 500 MG Tab ONE (13:58)
[2023-11-11 14:21] VITALS: BP 114/56
--- NOTE | 2023-11-11 14:23 | NUR ---
11/11/23 1423 Dimple Carter PT STATED THAT NAUSEA HAS RESOLVED AFTER RECEIVING IV ZOFRAN. PT ABLE TO TOLERATE SNACKS, AND FLUIDS. SIGNIFICANT OTHER AT SIDE OF RECLINER. PT DID STATE THAT HER PAIN WAS A 4/10. 1330: PT ABLE TO URINATE WITHOUT ANY PROBLEMS. PT DENIED ANY DIZZINESS WITH TRANSFERS. 1400: PT WAS GIVEN 1,000MG OF APAP PER DOCTOR EMO'S ORDERS.
== END 2023-11-11 14:10 | disposition home or self-care (01) ==
LOC: ORSCSDS 10:56
PROVIDERS: Obstetrics & Gynecology
PROC: 10D17ZZ Extraction of Products of Conception, Retained, Via Natural or Artificial Opening (ICD-10-PCS; principal; 2023-11-11 12:15)
DX: O02.1 Missed abortion (principal); J45.909 Unspecified asthma, uncomplicated; E66.9 Obesity, unspecified; Z68.42 Body mass index [BMI] 45.0-49.9, adult
CPT/HCPCS: 76998; 88305; 88342; A9270; J1100; J1885; J2210; J2405; J2704; J2765; J3010; J7120

== ENCOUNTER → 2024-02-20 | Outpatient (CLI) | payer OTHER ==
[~2024-02-20] MED LIST changes: -Lactated Ringer's 1,000 ML IV ONE
[2024-02-21 07:28] LABS: Bacterial Vaginosis PCR Negative (NEGATIVE); Candida Group, PCR NOT DETECTED (NOT DETECT); Candida glabrata-krusei, PCR NOT DETECTED (NOT DETECT)
[2024-02-21 08:05] LABS: Chlamydia Trachomatis Vaginal NOT DETECTED (NOT DETECT); Neisseria Gonorrhoea Vaginal NOT DETECTED (NOT DETECT)
== END ==
LOC: LAB SHORT 17:05 → LAB 17:05
PROVIDERS: Registered Nurse Community Health
DX: N89.8 Other specified noninflammatory disorders of vagina (principal); N93.9 Abnormal uterine and vaginal bleeding, unspecified
CPT/HCPCS: 87481; 87491; 87591; 87661; 87801

== ENCOUNTER 2024-06-25 11:11 | Emergency (ER) | payer BC, OTHER ==
[~2024-06-25] VITALS: Ht 162.6 cm; Wt 113.4 kg
[2024-06-25] MEDS ORDERED: ESCITALOPRAM OXA5 MG PO (11:19)
[2024-06-25 12:32] LABS: BASOPHILS ABSOLUTE AUTO 0.04 K/mm3 (0.00-0.23); BASOPHILS PERCENT AUTO 1 % (0-2); EOSINOPHILS ABSOLUTE AUTO 0.19 K/mm3 (0.00-0.68); EOSINOPHILS PERCENT AUTO 3 % (0-6); Hematocrit 39.6 % (33.0-51.0); Hemoglobin 13.4 g/dL (11.5-16.0); IMMATURE GRAN ABSOLUTE AUTO 0.01 K/mm3 (0.00-0.10); IMMATURE GRAN PERCENT AUTO 0 % (0-1); LYMPHOCYTES ABSOLUTE AUTO 2.55 K/mm3 (0.84-5.20); LYMPHOCYTES PERCENT AUTO 37 % (21-46); MONOCYTES PERCENT AUTO 7 % (4-13); Mean Corpuscular HGB 30.6 pg (26.0-34.0); Mean Corpuscular HGB Conc 33.8 g/dL (31.5-36.5); Mean Corpuscular Volume 90 fL (80-100); Mean Platelet Volume 11.1 fL (9.1-12.4); NEUTROPHILS ABSOLUTE AUTO 3.56 K/mm3 (1.96-9.15); NEUTROPHILS PERCENT AUTO 52 % (41-73); Platelet Count 250 K/mm3 (150-400); RDW Coefficient Variation 13.7 % (11.7-14.2); RDW Standard Deviation 46.2 fL (35.1-46.3); Red Blood Cell Count 4.38 M/mm3 (3.80-5.20); White Blood Cell Count 6.85 K/mm3 (4.00-11.30)
[2024-06-25 12:46] LABS: Alanine Aminotransfer (ALT/SGP 34 U/L (12-78); Albumin, Blood 3.6 g/dL (3.4-5.0); Alk Phos 88 U/L (50-136); Anion Gap 9 mmol/L (3-11); Aspartate Aminotrans (AST/SGOT 24 U/L (12-37); Beta HCG, Quantitative, Serum <1 mIU/mL (0-3); Bilirubin, Total 0.3 mg/dL (0.1-1.0); Blood Urea Nitrogen 9 mg/dL (8-24); Bun/Creatinine Ratio 12.7 (12.0-20.0); CO2, Blood 24 mmol/L (21-32); Calcium, Blood 7.8 mg/dL (8.5-10.1); Chloride, Blood 111 mmol/L (98-108); Creatinine, Blood 0.71 mg/dL (0.40-1.00); Globulin, Blood 3.7 g/dL (2.2-4.0); Glomerular Filtration Rate 119 (60-); Glucose, Blood 105 mg/dL (70-99); Potassium, Blood 3.8 mmol/L (3.5-5.5); Sodium, Blood 140 mmol/L (136-145); Total Protein, Blood 7.3 g/dL (6.4-8.2)
[2024-06-25 13:18] LABS: Source, Urine Clean Catch
[2024-06-25 13:21] LABS: Appearance, Urine Clear (Clear); Bilirubin, Urine Neg (Neg); Blood, Urine 5+ (Neg); Color, Urine Yellow (P-Yellow); Glucose Qualitative, Urine Neg (Neg); Ketones, Urine Neg (Neg); Leukocyte Esterase, Urine Neg (Neg); Nitrite, Urine Neg (Neg); Protein, Urine 1+ (Neg); Specific Gravity, Urine 1.025 (1.003-1.022); Urobilinogen, Urine NORM (Normal)
[2024-06-25 13:27] LABS: Bacteria Few /hpf; Hyaline Casts 0-2 /lpf (0-2); Mucus Light (0-Heavy); Red Blood Cells, Urine 25-50 /hpf (0-2); Squamous Epithelial Cells Mod /hpf (Few); White Blood Cells, Urine 0-2 /hpf (0-5)
[2024-06-25] MEDS ORDERED: MEDR5 PO (14:13)
[2024-06-25 14:15] VITALS: BP 111/50
== END 2024-06-25 14:30 | disposition home or self-care (01) ==
LOC: ER 11:11
PROVIDERS: Student in an Organized Health Care Education/Training Program
DX: N92.6 Irregular menstruation, unspecified (principal); J45.909 Unspecified asthma, uncomplicated; Z91.012 Allergy to eggs; Z88.5 Allergy status to narcotic agent; Z88.8 Allergy status to other drugs, medicaments and biological substances; Z79.899 Other long term (current) drug therapy
CPT/HCPCS: 76830; 76856; 80053; 81001; 84702; 85025; 99284-25

== ENCOUNTER 2024-11-05 06:15 | Inpatient (IN) | payer BC, OTHER ==
[~2024-11-05] VITALS: Ht 162.6 cm; Wt 132.5 kg
[2024-11-05] VITALS (9 sets, daily range): BP systolic 112–153; BP diastolic 46–113
[~2024-11-05 06:15] MED LIST changes: +ESCITALOPRAM OXA5 MG PO; +MEDR5 PO
[2024-11-05] MEDS ORDERED: CeFAZolin Sodium 3,000 MG in NS 100 ML IV SCH (06:25)
[2024-11-05] MEDS ORDERED: IBUP600 PO (06:46)
[2024-11-05] MEDS ORDERED: MELO7.5 PO (06:47)
[2024-11-05] MEDS ORDERED: GABA100 PO (06:47)
[2024-11-05] MEDS ORDERED: SYMBICORT 80-46.9 GM INH (06:48)
[2024-11-05] MEDS ORDERED: Dexamethasone Sod Phos 10 MG/ML 1ML VIAL ONE (06:58)
[2024-11-05] MEDS ORDERED: FentaNYL Citrate 50 MCG/ML 2 ML Injection ONE ×3 (06:58→15:20)
[2024-11-05] MEDS ORDERED: Rocuronium Bromide 10 MG/ML 5ML Injection IV ONE ×3 (06:58→17:26)
[2024-11-05] MEDS ORDERED: Bupivacaine 0.5% W/EPI 1:200000 SDV 30 ML Vial ONE (06:58)
[2024-11-05] MEDS ORDERED: Ondansetron HCl 2 MG / ML 2ML Vial ONE (06:58)
--- NOTE | 2024-11-05 07:00 | NUR ---
Ambulatory in Day Surgery History, Chart, Medications and Allergies reviewed before start of procedure. Pre-Op teaching done. Pt verbalizes understanding.
[2024-11-05] MEDS ORDERED: Sugammadex Sodium 200 MG/2ML SDV (100 MG/ML) ONE (07:21)
[2024-11-05] MEDS ORDERED: Albuterol 2.5 MG/3 ML VIAL INH PRN (07:35)
[2024-11-05] MEDS ORDERED: HYDROmorphone HCl/Pf 1MG SYR IV PRN (07:35)
[2024-11-05] MEDS ORDERED: Labetalol HCL 5 MG/ML 4ML Injection (Single Dose) IV PRN (07:35)
[2024-11-05] MEDS ORDERED: Ondansetron HCl 2 MG / ML 2ML Vial IV PRN (07:35)
[2024-11-05] MEDS ORDERED: FentaNYL Citrate 50 MCG/ML 2 ML Injection IV PRN ×3 (07:35→14:15)
[2024-11-05] MEDS ORDERED: EPINEPHrine HCL 4 MG in NS 250 ML IV SCH (08:15)
[2024-11-05 09:19] LABS: Calcium, Ionized (POC) 1.02 mmol/L (1.10-1.46); Chloride (POC) 106 mmol/L (98-108); Creatinine (POC) 0.8 mg/dL (0.6-1.0); Glucose (ISTAT POC) 297 mg/dL (70-99); Hematocrit (POC) 43.0 % (36.0-46.0); Hemoglobin (POC) 14.6 g/dL (12.0-16.0); Potassium (POC) 2.8 mmol/L (3.5-5.5); Sodium (POC) 140 mmol/L (135-148); Total CO2 (POC) 18 mmol/L (21-32)
[2024-11-05 09:24] LABS: pH Blood Venous 7.02 (7.34-7.37)
[2024-11-05] MEDS ORDERED: EPINEPHrine HCL 16 MG in NS 250 ML IV SCH (09:40)
[2024-11-05] MEDS ORDERED: Vasopressin 20 UNITS in NS 100 ML IV SCH (09:45)
--- NOTE | 2024-11-05 09:45 | NUR ---
PT ARRIVES TO ICU 7 FROM OR INTUBATED AND EPI GTT AT 200MCG/MIN PER DR. DURBIN (ANESTHESIOLOGIST). HAS CENTRAL LINE TO RIJ. XRAY CONFIRMATION OF ETT AND CENTRAL LINE DONE IN OR. PT HAS DUSKY EXTREMITIES. PULSES FAINT PALPABLE IN BILAT FEET. OVERALL PALE AND DUSKY T/O. DIFFICULT TO GET SPO2 READING. A-LINE TO R WRIST THAT WAS PLACED IN OR IS NO LONGER PATENT. DR. LEWIS WILL BE PLACING A NEW ONE. HAS [place] CATH. PT IS UNRESPONSIVE AT THIS TIME, NO SEDATIVES GIVEN PER OR REPORT FOR A COUPLE HOURS.
[2024-11-05] MEDS ORDERED: NS 500 ML IV ONE (09:50)
[2024-11-05 10:27] LABS: BASOPHILS ABSOLUTE AUTO 0.05 K/mm3 (0.00-0.23); BASOPHILS PERCENT AUTO 0 % (0-2); EOSINOPHILS ABSOLUTE AUTO 0.09 K/mm3 (0.00-0.68); EOSINOPHILS PERCENT AUTO 1 % (0-6); Hematocrit 46.1 % (33.0-51.0); Hemoglobin 14.6 g/dL (11.5-16.0); IMMATURE GRAN ABSOLUTE AUTO 0.13 K/mm3 (0.00-0.10); IMMATURE GRAN PERCENT AUTO 1 % (0-1); LYMPHOCYTES ABSOLUTE AUTO 9.36 K/mm3 (0.84-5.20); LYMPHOCYTES PERCENT AUTO 54 % (21-46); MONOCYTES ABSOLUTE AUTO 0.27 K/mm3 (0.16-1.47); MONOCYTES PERCENT AUTO 2 % (4-13); Mean Corpuscular HGB Conc 31.7 g/dL (31.5-36.5); Mean Corpuscular Volume 96 fL (80-100); NEUTROPHILS ABSOLUTE AUTO 7.45 K/mm3 (1.96-9.15); NEUTROPHILS PERCENT AUTO 43 % (41-73); NRBC ABSOLUTE 0.00 K/mm3 (0.00-0.02); NRBC Auto 0.0 /100 WBC (0.0-0.2); Platelet Count 282 K/mm3 (150-400); RDW Coefficient Variation 13.5 % (11.7-14.2); RDW Standard Deviation 48.1 fL (35.1-46.3)
[2024-11-05 10:41] LABS: Anion Gap 14.0 mmol/L (3-11); Blood Urea Nitrogen 10.0 mg/dL (8-24); CO2, Blood 17.0 mmol/L (21-32); Calcium, Blood 6.3 mg/dL (8.5-10.1); Chloride, Blood 112.0 mmol/L (98-108); Creatinine, Blood 0.7 mg/dL (0.40-1.00); Glucose, Blood 302.0 mg/dL (70-99); Magnesium, Blood 1.9 mg/dL (1.6-2.4); Phosphorus, Blood 4.4 mg/dL (2.5-4.9); Potassium, Blood 2.8 mmol/L (3.5-5.5); Sodium, Blood 140.0 mmol/L (136-145)
[2024-11-05 10:42] LABS: Prothrombin Time Results 14.2 Sec (9.7-11.5)
--- NOTE | 2024-11-05 10:58 | NUR ---
Spiritual Care | Family Support | Nurse Request Pt. is in OR when this cotton picking machine operator is called at approx. 0915 to give support to the Pts. SO in the hallway. SO displays evidence of being very upset. Facilitated a short review and listen with empathy and a calming presence. SO verbalized concern that the hospital was responsible for the Pts. condition. Attempts to normalize the Pt. experience and provide further care were made, but SO requested that this cotton picking machine operator and the staff "give him space." Will remain available to Pt. and SO and staff as needed.
[2024-11-05 10:59] LABS: pH Blood Arterial 6.98 (7.35-7.45)
--- NOTE | 2024-11-05 11:00 | NUR ---
UPDATE PT STILL UNRESPONSIVE. STILL HAVING DIFFICULTY GETTING SPO2. DR. LEWIS PLACED A-LINE TO R AXILLARY AND CENTRAL LINE WAS WITHDRAWN 4 CM. OG TUBE PLACED, AUSCULATION VERIFIED AND BILE RETURN, CLAMPED.
[2024-11-05] MEDS ORDERED: Sodium Bicarb 8.4% 1 MEQ/ML 50 ML Vial IV ONE ×2 (11:05→16:11)
[2024-11-05] MEDS ORDERED: SODIUM BICARB IV ONE (11:05)
[2024-11-05] MEDS ORDERED: Calcium Chloride 10% 1,000 MG in NS 50 ML IV ONE (11:10)
--- NOTE | 2024-11-05 11:12 | NUR ---
11/05/24 DAREN KAY PATIENT INTO OR @ 0729 - PATIENT POSITIONED ON TABLE WITH PADS, STRAPS, MONITOR LEADS, SCDS, and associated tubing. Patient induced and intubated without issue, mri manager began prepping perineum and pelvis with CHG scrub and sponges at approximatley 0745. Shortly after, patient began exhibiting hypotension, hypoxia, and tachycardia. State Inspector moved to head of bed to assisst anesthesia with airway - ET tube replaced without improvment and additional anesthesia support requested at approximatley 0755. Assistance arrived at approximatley 0805, epinephrine drip started at approximatley 0825. RN notes presence of red, mottled, large rash had appeared on inner thighs, groin, and perineum at this point - poss. anaphylaxis to prep solution considered in H's & T's and epinephrine already being administered. ICU carousel attendant Dr. Porter arrived at approximatley 0849 and CVC placed by 0908. Near-code situation continued with continuous resuscitative measures being taken until chest XR taken at 0916 to confirm CVC and ET tube placement. 2 amps of sodium bicarb given per Dr. Porter, ICU carousel attendant, patient prepared to move to ICU. 09 Patient transfered to ICU 7 on transport monitor with Dr. Blancas, Dr Borges, Dr. Porter, and 4 RN's. See code sheet for further details.
[2024-11-05 12:05] LABS: pH Blood Arterial 7.06 (7.35-7.45)
[2024-11-05] MEDS ORDERED: Bumetanide 0.25 MG/ML 10ML Vial IV ONE (12:10)
[2024-11-05 14:07] LABS: pH Blood Arterial 7.07 (7.35-7.45)
[2024-11-05] MEDS ORDERED: Enoxaparin 40 MG/0.4 ML SYR SC SCH (15:00)
[2024-11-05 15:12] LABS: pH Blood Arterial 7.06 (7.35-7.45)
--- NOTE | 2024-11-05 15:45 | NUR ---
UPDATE PT WAS PRONED AT 1305 FOR OXYGENATION DIFFICULTY. FREQUENT ABG'S BEING DRAWN DUE TO POOR SPO2 READING. DR. LEWIS ADJUSTING THE VENT SETTINGS FREQUENTLY. LEVOPHED WAS ADDED AND WILL TRY TO COME DOWN ON EPI GTT IF POSSIBLE. CT OF HEAD WAS DONE EARLIER. PT IS NOW STARTING TO TRY TO OPEN EYE'S ON COMMAND, TWITCHING EXTREMITIES AND MOVING HEAD. ONE DOSE OF FENTANYL AND ROCURONIUM GIVEN FOR VENT COMPLIANCE PER DR. LEWIS. PUPILS EQUAL AND REACTIVE. DR. LEWIS IS CONSULTING [facility]. S.O. AT BEDSIDE AND UPDATED FREQUENTLY.
[2024-11-05 15:54] LABS: Alanine Aminotransfer (ALT/SGP 59 U/L (12-78); Albumin, Blood 2.3 g/dL (3.4-5.0); Albumin/Globulin Ratio 0.8 (0.8-1.8); Anion Gap 12 mmol/L (3-11); Aspartate Aminotrans (AST/SGOT 170 U/L (12-37); Bilirubin, Direct <0.1 mg/dL (0.0-0.3); Bilirubin, Indirect Unable to Calculate mg/dL (0.1-0.7); Bilirubin, Total 0.1 mg/dL (0.1-1.0); Blood Urea Nitrogen 14 mg/dL (8-24); CO2, Blood 16 mmol/L (21-32); Calcium, Blood 7.8 mg/dL (8.5-10.1); Chloride, Blood 119 mmol/L (98-108); Creatinine, Blood 1.60 mg/dL (0.40-1.00); Globulin, Blood 3.0 g/dL (2.2-4.0); Glucose, Blood 127 mg/dL (70-99); Potassium, Blood 3.9 mmol/L (3.5-5.5); Sodium, Blood 143 mmol/L (136-145); Total Protein, Blood 5.3 g/dL (6.4-8.2)
[2024-11-05] MEDS ORDERED: Calcium Chloride 10% 100 MG/ML 10ML Vial IV ONE (16:11)
[2024-11-05] MEDS ORDERED: Heparin Sodium 5000 Units/ML 1ML MDV IV ONE (16:25)
[2024-11-05] MEDS ORDERED: Heparin Sodium,Porcine/0.5 NS 500 ML IV SCH (16:25)
[2024-11-05 17:15] LABS: pH Blood Arterial 7.11 (7.35-7.45)
--- NOTE | 2024-11-05 18:02 | NUR ---
SUMMARY PT INTUBATED, NO SEDATION. WAS ADMITTED FROM OR THIS AM. HAS A-LINE TO R AXILLARY. TITRATING LEVOPHED AND EPI GTT'S, ALSO ON VASOPRESSIN. HEPARIN GTT STARTED PER PHARMACY. PT'S TROPONIN IS CRITICALLY HIGH AND REDUCED EF ON THE ECHO. PT WAS STARTING TO MOVE EXTREMITIES AND HEAD THIS AFTERNOON, APPEARED TO TRY TO OPEN EYE'S TO COMMANDS. WAS GIVEN FENTANYL AND 50MG OF ROCURONIUM DUE TO PT MOVING HEAD AND ABOUT TO EXTUBATE HERSELF WHILE PRONED. PT WAS PRONED FOR OXYGENATION WHICH DID IMPROVE. FREQUENT ABG'S DRAWN TO MONITOR OXYGEN AND PH, POOR SPO2 READING. MINIMAL UO. DR. LEWIS CONSULTED [facility] WHO ACCEPTED PT AND WILL BE TAKING HER CHANTALE. AWAITING REACH ETA.
--- NOTE | 2024-11-06 06:08 | NUR ---
I HELPED REACH PREP FOR TRANSPORT SHORTLY AFTER SHIFT CHANGE. PT WAS INTUBATED AND PRONED NUTRITION SERVICES MANAGER. LEVO 15MCG/MIN, EPI 25MCG/MIN, AND VAOPRESSIN 0.04. PT WAS NORMOTENSIVE AND TACYHYCARDIC, 140S-150S. SHE WAS TOLERATING THE VENT. HER EXTREMITIES WERE COLD, CORE WARM. PATIENT WAS FEBRILE. ICE PACKS WERE IN PLACE AND TYLENOL HAD BEEN ADMINISTERED PER DAYSHIFT RN. COLOR WAS GOOD. REPORT WAS GIVEN TO REACH RN. STAFF HELPED PACKAGE PT AND MOVE HER FROM THE BED TO THE GURNEY WITH THE LIFT. SHE LEFT THE UNIT APPROXIMATELY 2031.
[2024-11-06] MEDS ORDERED: Pantoprazole Sodium 40 MG Injection IV SCH (09:00)
--- NOTE | 2024-11-06 12:51 | NUR ---
LATE ENTRY: PT RECEIVED 2 AMPS OF SODIUM BICARB AND 1G OF CALCIUM CHLORIDE FROM [facility] AFTER ABG RESULTS AT 1014 ON 11/05/24. EPI GTT WAS TITRATED QUICKER THAN PROTOCOL PT WAS STABILIZED IN THE ICU WITH DR. LEWIS AT BEDSIDE AND MAINTAINING MAP GREATER THAN 65.
[2024-11-07 05:06] LABS: TRYPTASE 54.2 ug/L (<=10.9)
== END 2024-11-05 20:15 | disposition short-term general hospital (02) | DRG 915 ==
LOC: ORSCMMR 06:15 → ORD 07:30 → ORSCMMR 10:02 → ICUE 10:03
PROVIDERS: Internal Medicine Critical Care Medicine; ADMIT Obstetrics & Gynecology
PROC: 3E043XZ Introduction of Vasopressor into Central Vein, Percutaneous Approach (ICD-10-PCS; principal; 2024-11-05)
PROC: 5A1935Z Respiratory Ventilation, Less than 24 Consecutive Hours (ICD-10-PCS; 2024-11-05)
PROC: 0T9B70Z Drainage of Bladder with Drainage Device, Via Natural or Artificial Opening (ICD-10-PCS; 2024-11-05)
PROC: 02HV33Z Insertion of Infusion Device into Superior Vena Cava, Percutaneous Approach (ICD-10-PCS; 2024-11-05)
PROC: 3E033XZ Introduction of Vasopressor into Peripheral Vein, Percutaneous Approach (ICD-10-PCS; 2024-11-05)
PROC: 03HY32Z Insertion of Monitoring Device into Upper Artery, Percutaneous Approach (ICD-10-PCS; 2024-11-05)
PROC: 4A133B1 Monitoring of Arterial Pressure, Peripheral, Percutaneous Approach (ICD-10-PCS; 2024-11-05)
PROC: 4A133J1 Monitoring of Arterial Pulse, Peripheral, Percutaneous Approach (ICD-10-PCS; 2024-11-05)
PROC: 4A133R1 Monitoring of Arterial Saturation, Peripheral, Percutaneous Approach (ICD-10-PCS; 2024-11-05)
DX: T78.2XXA Anaphylactic shock, unspecified, initial encounter (principal); R57.0 Cardiogenic shock; Z68.43 Body mass index [BMI] 50.0-59.9, adult; E87.20 Acidosis, unspecified; I51.81 Takotsubo syndrome; I50.20 Unspecified systolic (congestive) heart failure; N80.00 Endometriosis of the uterus, unspecified; R09.02 Hypoxemia; E87.6 Hypokalemia; J45.909 Unspecified asthma, uncomplicated; F41.9 Anxiety disorder, unspecified; F32.A Depression, unspecified; E66.01 Morbid (severe) obesity due to excess calories; Z88.8 Allergy status to other drugs, medicaments and biological substances; Z91.012 Allergy to eggs; Z79.51 Long term (current) use of inhaled steroids; Z90.721 Acquired absence of ovaries, unilateral; Z88.5 Allergy status to narcotic agent; Z79.1 Long term (current) use of non-steroidal anti-inflammatories (NSAID); Z78.1 Physical restraint status
CPT/HCPCS: 36620; 70450; 71045; 80047; 80048; 80076; 82330; 82803; 83520; 83605; 83735; 84100; 84484; 85014; 85025; 85610; 85730; 86850; 86900; 86901; 93005; 93010; 94002; A9270; C1751; C8929; J0165; J0690; J1100; J1644; J1938; J2405; J2704; J3010; J3480; J7040; J7050; J7120; Q9957

== ENCOUNTER 2024-12-10 03:30 | Day surgery (SDC) | payer BC, OTHER ==
[~2024-12-10 03:30] MED LIST changes: +GABA100 PO; +IBUP600 PO; +MELO7.5 PO; +SYMBICORT 80-46.9 GM INH
[2024-12-10] MEDS ORDERED: Lidocaine HCl 4% Cream 5 GM ONE (08:23)
== END 2024-12-10 23:00 | disposition home or self-care (01) ==
LOC: WOUND 03:30
DX: T81.31XA Disruption of external operation (surgical) wound, not elsewhere classified, initial encounter (principal); M79.7 Fibromyalgia; Z88.1 Allergy status to other antibiotic agents; Z88.8 Allergy status to other drugs, medicaments and biological substances
CPT/HCPCS: A9270; G0463

== ENCOUNTER 2024-12-18 03:30 | Day surgery (SDC) | payer BC, OTHER | END 2024-12-18 23:00 | disposition home or self-care (01) | LOC: WOUND 03:30 | DX: T81.30XA Disruption of wound, unspecified, initial encounter (principal); T79.A22A Traumatic compartment syndrome of left lower extremity, initial encounter ==

== ENCOUNTER 2024-12-23 01:45 | Day surgery (SDC) | payer BC, OTHER | END 2024-12-23 23:00 | disposition home or self-care (01) | LOC: WOUND 01:45 | DX: T81.31XA Disruption of external operation (surgical) wound, not elsewhere classified, initial encounter (principal) ==

== ENCOUNTER 2025-01-04 00:59 | Day surgery (SDC) | payer BC, OTHER | END 2025-01-04 22:00 | disposition home or self-care (01) | LOC: WOUND 00:59 | DX: T81.31XD Disruption of external operation (surgical) wound, not elsewhere classified, subsequent encounter (principal) | CPT/HCPCS: G0463 ==

== ENCOUNTER 2025-01-19 00:39 | Day surgery (SDC) | payer BC, OTHER | END 2025-01-19 23:00 | disposition home or self-care (01) | LOC: WOUND 00:39 | DX: T81.31XD Disruption of external operation (surgical) wound, not elsewhere classified, subsequent encounter (principal); Z87.828 Personal history of other (healed) physical injury and trauma | CPT/HCPCS: G0463 ==

== ENCOUNTER → 2025-01-26 | Outpatient (CLI) | payer BC, OTHER ==
[2025-01-26 13:25] LABS: Microalbumin, Urine Quant. 5.06 mg/L (0.000-20.000); Protein, Urine Quantitative 6.4 mg/dL (0.0-11.9)
== END ==
LOC: LAB SHORT 07:38 → LAB 07:38
PROVIDERS: Internal Medicine Nephrology
DX: N18.2 Chronic kidney disease, stage 2 (mild) (principal); D63.1 Anemia in chronic kidney disease; N25.81 Secondary hyperparathyroidism of renal origin; E55.9 Vitamin D deficiency, unspecified; E78.00 Pure hypercholesterolemia, unspecified; R76.9 Abnormal immunological finding in serum, unspecified; R94.5 Abnormal results of liver function studies; R94.6 Abnormal results of thyroid function studies
CPT/HCPCS: 81050; 82043; 82570; 84156